=== PATIENT | male | born 1985 | race Caucasian/White ===

== ENCOUNTER 2020-03-11 07:56 | Emergency (ER) | payer SELFPAY ==
[2020-03-11] MEDS ORDERED: ONDANSETRON 4 MG/2 ML INJ IV ONE (09:27)
[2020-03-11] MEDS ORDERED: SODIUM CHLORIDE 0.9% 1000 ML 1,000 ML IV ONE ×3 (09:27→11:56)
[2020-03-11] MEDS ORDERED: HYDROmorphone 1 MG/1 ML INJ IV ONE (09:28)
[2020-03-11 09:32] LABS: Basophils % (Auto) 0.4 % (0.0-1.8); Eosinophils # (Auto) 0.1 K/mm3 (0.0-0.4); Eosinophils % (Auto) 1.1 % (0.0-4.3); Hematocrit 44.1 % (35.5-45.6); Hemoglobin 14.9 gm/dl (11.8-15.2); Lymphocytes # (Auto) 2.1 K/mm3 (1.2-5.4); Lymphocytes % (Auto) 23.4 % (13.4-35.0); Mean Corpuscular HGB Conc 34 % (32-34); Mean Corpuscular Volume 93 fl (84-94); Monocytes # (Auto) 0.6 K/mm3 (0.0-0.8); Platelet Count 269 K/mm3 (140-440); Red Blood Count 4.76 M/mm3 (3.65-5.03); Red Cell Distribution Width 13.5 % (13.2-15.2)
--- NOTE | 2020-03-11 09:32 | Emergency Department Report ---
ED Abdominal Pain HPI - General Chief Complaint: Abdominal Pain Stated Complaint: LEFT SIDED ABD PAIN/NOT URINATING Time Seen by Provider: 03/11/20 09:22 Source: patient Mode of arrival: Ambulatory Limitations: No Limitations - History of Present Illness Initial Comments: Patient is a 34-year-old male who presents emergency room complaints of left lower quadrant abdominal pain that radiates to his back that began last night. He has associated nausea. He states that he also has urinary retention and has not urinated since 10 PM last night. He denies any vomiting, diarrhea, hematochezia, melena, hematemesis. He states that he had a normal bowel movement this morning. No past medical history. No allergies to medications. No abdominal surgical history. No recent travel or sick contacts. - Related Data Previous Rx's Medication Instructions Recorded Last Taken Type Acetaminophen [8 Hour 650 mg PO Q6HR PRN #30 tablet.er 11/06/19 Unknown Rx Acetaminophen] Albuterol Sulfate [Proair 90 mcg IH Q4HR PRN #2 aer.pow.ba 11/06/19 Unknown Rx Respiclick] Ondansetron [Zofran Odt] 4 mg PO Q8HR PRN #7 tab.rapdis 03/11/20 Unknown Rx Tamsulosin [Flomax] 0.4 mg PO QDAY #7 cap 03/11/20 Unknown Rx traMADoL [Ultram 50 MG tab] 50 mg PO Q6HR PRN #10 tablet 03/11/20 Unknown Rx Allergies Allergy/AdvReac Type Severity Reaction Status Date / Time No Known Allergies Allergy Verified 05/26/13 19:28 ED Review of Systems ROS: Stated complaint: LEFT SIDED ABD PAIN/NOT URINATING Other details as noted in HPI Comment: All other systems reviewed and negative ED Past Medical Hx - Past Medical History Previous Medical History?: No - Surgical History Past Surgical History?: No - Social History Smoking Status: Never Smoker - Medications Home Medications: Home Medications Medication Instructions Recorded Confirmed Last Taken Type Acetaminophen [8 Hour 650 mg PO Q6HR PRN #30 tablet.er 11/06/19 Unknown Rx Acetaminophen] Albuterol Sulfate [Proair 90 mcg IH Q4HR PRN #2 aer.pow.ba 11/06/19 Unknown Rx Respiclick] Ondansetron [Zofran Odt] 4 mg PO Q8HR PRN #7 tab.rapdis 03/11/20 Unknown Rx Tamsulosin [Flomax] 0.4 mg PO QDAY #7 cap 03/11/20 Unknown Rx traMADoL [Ultram 50 MG tab] 50 mg PO Q6HR PRN #10 tablet 03/11/20 Unknown Rx ED Physical Exam - General Limitations: No Limitations General appearance: alert, in no apparent distress - Head Head exam: Present: atraumatic, normocephalic - Eye Eye exam: Present: normal appearance - ENT ENT exam: Present: mucous membranes moist - Respiratory Respiratory exam: Present: normal lung sounds bilaterally. Absent: respiratory distress, wheezes, rales, rhonchi, stridor, chest wall tenderness, accessory muscle use, decreased breath sounds, prolonged expiratory - Cardiovascular Cardiovascular Exam: Present: regular rate, normal rhythm, normal heart sounds. Absent: systolic murmur, diastolic murmur, rubs, gallop - GI/Abdominal GI/Abdominal exam: Present: soft, tenderness (LLQ), normal bowel sounds. Absent: distended, guarding, rebound, rigid - Back Exam Back exam: Present: CVA tenderness (L) (mild). Absent: CVA tenderness (R) - Neurological Exam Neurological exam: Present: alert, oriented X3 - Psychiatric Psychiatric exam: Present: normal affect, normal mood - Skin Skin exam: Present: warm, dry, intact ED Course Vital Signs 03/11/20 03/11/20 03/11/20 08:10 10:11 11:38 Temperature 97.9 F Pulse Rate 60 Respiratory 16 18 18 Rate Blood Pressure 139/89 O2 Sat by Pulse 100 Oximetry 03/11/20 12:08 Temperature Pulse Rate Respiratory 18 Rate Blood Pressure O2 Sat by Pulse Oximetry ED Medical Decision Making - Lab Data Result diagrams: 03/11/20 08:40 03/11/20 08:40 Lab Results 03/11/20 03/11/20 03/11/20 Range/Units 08:40 08:40 13:42 WBC 8.8 (4.5-11.0) K/mm3 RBC 4.76 (3.65-5.03) M/mm3 Hgb 14.9 (11.8-15.2) gm/dl Hct 44.1 (35.5-45.6) % MCV 93 (84-94) fl MCH 31 (28-32) pg MCHC 34 (32-34) % RDW 13.5 (13.2-15.2) % Plt Count 269 (140-440) K/mm3 Lymph % (Auto) 23.4 (13.4-35.0) % [place] % (Auto) 7.0 (0.0-7.3) % Eos % (Auto) 1.1 (0.0-4.3) % Baso % (Auto) 0.4 (0.0-1.8) % Lymph # 2.1 (1.2-5.4) K/mm3 [place] # 0.6 (0.0-0.8) K/mm3 Eos # 0.1 (0.0-0.4) K/mm3 Baso # 0.0 (0.0-0.1) K/mm3 Seg Neutrophils % 68.1 (40.0-70.0) % Seg Neutrophils # 6.0 (1.8-7.7) K/mm3 Sodium 141 (137-145) mmol/L Potassium 4.4 (3.6-5.0) mmol/L Chloride 103.6 (98-107) mmol/L Carbon Dioxide 24 (22-30) mmol/L Anion Gap 18 mmol/L BUN 14 (9-20) mg/dL Creatinine 0.9 (0.8-1.3) mg/dL Estimated GFR > 60 ml/min BUN/Creatinine Ratio 16 % Glucose 138 H (75-100) mg/dL Calcium 9.0 (8.4-10.2) mg/dL Total Bilirubin 0.20 (0.1-1.2) mg/dL AST 23 (5-40) units/L ALT 37 (7-56) units/L Alkaline Phosphatase 95 (35-129) units/L Total Protein 7.4 (6.3-8.2) g/dL Albumin 4.4 (3.9-5) g/dL Albumin/Globulin Ratio 1.5 % Lipase 32 (13-60) units/L Urine Color Straw (Yellow) Urine Turbidity Slightly-cloudy (Clear) Urine pH 5.0 (5.0-7.0) Ur Specific [place] 1.050 H (1.003-1.030) Urine Protein <15 mg/dl (Negative) mg/dL Urine Glucose (UA) Neg (Negative) mg/dL Urine Ketones Neg (Negative) mg/dL Urine Blood Mod (Negative) Urine Nitrite Neg (Negative) Urine Bilirubin Neg (Negative) Urine Urobilinogen < 2.0 (<2.0) mg/dL Ur Leukocyte Esterase Neg (Negative) Urine WBC (Auto) 5.0 (0.0-6.0) /HPF Urine RBC (Auto) 28.0 (0.0-6.0) /HPF Calcium Oxalate Crystal 2+ - Radiology Data Radiology results: report reviewed CT ABDOMEN AND PELVIS WITH CONTRAST INDICATION / CLINICAL INFORMATION: Left lower quadrant pain, left lower back pain, urinary retention. TECHNIQUE: Axial CT images were obtained through the abdomen and pelvis after 100 cc Omnipaque [address] scans at this location are performed using CT dose reduction for ALARA by means of automated exposure control. COMPARISON: None available. FINDINGS: LOWER CHEST: No significant abnormality. LIVER: There is generalized steatosis without an additional significant abnormality. GALLBLADDER: No significant abnormality. BILE DUCTS: No significant abnormality. PANCREAS: No significant abnormality. SPLEEN: No significant abnormality. ADRENALS: No significant abnormality. RIGHT KIDNEY / URETER: No stable nonobstructive stones are seen along the upper and lower poles of the right kidney measuring up to 5.1 mm along the lower pole. No other significant abnormality. LEFT KIDNEY / URETER: A left renal pelvic stone measures 2.0 x 1.2 cm with secondary mild hydronephrosis. Additional smaller renal stones are present measuring up to 8 mm along the lower pole. There are 2 stones at the left UVJ measuring up to 5.6 mm with secondary mild hydroureter. Mild perinephric and periureteral fat stranding is present. There is mild left urothelial enhancement. A delayed nephrogram is noted as well. No other significant abnormality. STOMACH / SMALL BOWEL: No significant abnormality. COLON: No significant abnormality. APPENDIX: No significant abnormality. PERITONEUM: No free fluid. No free air. No fluid collection. LYMPH NODES: No significant adenopathy. AORTA / ARTERIES: No significant abnormality. IVC / VEINS: No significant abnormality. URINARY BLADDER: No significant abnormality. REPRODUCTIVE ORGANS: The prostate gland is mildly calcified and normal in size. ADDITIONAL FINDINGS: None. SKELETAL SYSTEM: No significant abnormality. IMPRESSION: 1. Left renal pelvic stone measuring up to 2 cm and left UVJ stones measuring up to 5.6 mm with secondary mild hydroureteronephrosis. 2. Nonobstructive bilateral renal stones as above. 3. Additional findings as above. Signer Name: Boone Way MD Signed: 03/11/2020 10:31 AM Workstation Name: [id number] Transcribed By: AWAIS Dictated By: Boone Way MD Electronically Authenticated By: Boone Way MD Signed Date/Time: 03/11/20 1031 DD/ 1026 TD/TT: - Medical Decision Making Patient is a 34-year-old male who presents emergency room complaints of left lower quadrant abdominal pain that radiates to his back that began last night. He has associated nausea. He states that he also has urinary retention and has not urinated since 10 PM last night. He denies any vomiting, diarrhea, hematochezia, melena, hematemesis. He states that he had a normal bowel movement this morning. No past medical history. No allergies to medications. No abdominal surgical history. No recent travel or sick contacts. VSS. on exam: Patient has left lower quadrant abdominal tenderness palpation, mild left CVA tenderness to percussion, no guarding, no rebound, no rigidity, normal bowel sounds, no peritoneal signs. Labs with mildly elevated nonfasting blood glucose at 138, otherwise normal. UA shows evidence of red blood cells, no signs of infection. CT abdomen pelvis with IV contrast shows 1. Left renal pelvic stone measuring up to 2 cm and left UVJ stones measuring up to 5.6 mm with secondary mild hydroureteronephrosis. 2. Nonobstructive bilateral renal stones as above. 3. Additional findings as above. Patient given 2 L IV fluids, Zofran, Dilaudid, Toradol, Flomax and symptoms completely improved and patient was feeling much better ready to go home. Discussed all results with patient and answered questions. Patient was able to urinate without any difficulty. Patient given prescription for tramadol, Flomax, Zofran. Advised patient Please take medication as prescribed. Do not drive or operate heavy machinery or work while taking pain medication (tramadol). Increase your water intake. Follow-up with a urologist. Follow-up with a primary care doctor. Return to emergency room for any new or worsening symptoms - Differential Diagnosis diverticulitis, colitis, IBD, nephrolithiasis, mass, BPH, obstruction Critical care attestation.: If time is entered above; I have spent that time in minutes in the direct care of this critically ill patient, excluding procedure time. ED Disposition Clinical Impression: Nausea, Nephrolithiasis Abdominal pain Qualifiers: Abdominal location: left lower quadrant Qualified Code(s): R10.32 - Left lower quadrant pain Low back pain Qualifiers: Chronicity: acute Back pain laterality: left Sciatica presence: without sciatica Qualified Code(s): M54.5 - Low back pain Disposition: TO HOME OR SELFCARE Is pt being admited?: No Does the pt Need Aspirin: No Condition: Stable Instructions: Kidney Stones (ED) Additional Instructions: .Please take medication as prescribed. Do not drive or operate heavy machinery or work while taking pain medication (tramadol). Increase your water intake. Follow-up with a urologist. Follow-up with a primary care doctor. Return to emergency room for any new or worsening symptoms Prescriptions: Tamsulosin [Flomax] 0.4 mg PO QDAY #7 cap traMADoL [Ultram 50 MG tab] 50 mg PO Q6HR PRN #10 tablet PRN Reason: Pain , Severe (7-10) Ondansetron [Zofran Odt] 4 mg PO Q8HR PRN #7 tab.rapdis PRN Reason: Nausea And Vomiting Referrals: TAMMY ARANA MD [Staff Physician] - 2-3 Days GARCÍA URBANO MD [Staff Physician] - 2-3 Days (urologist ) Time of Disposition: 14:24 Print Language: KENYAN
[2020-03-11 09:46] LABS: Alanine Aminotransferase 37 units/L (7-56); Albumin 4.4 g/dL (3.9-5); BUN/Creatinine Ratio 16; Blood Urea Nitrogen 14 mg/dL (9-20); Hemolysis Index 8
--- NOTE | 2020-03-11 10:36 | Cat Scan Report ---
CT ABDOMEN AND PELVIS WITH CONTRAST INDICATION / CLINICAL INFORMATION: Left lower quadrant pain, left lower back pain, urinary retention. TECHNIQUE: Axial CT images were obtained through the abdomen and pelvis after 100 cc Omnipaque [address] scans at this location are performed using CT dose reduction for ALARA by means of automated exposure control. COMPARISON: None available. FINDINGS: LOWER CHEST: No significant abnormality. LIVER: There is generalized steatosis without an additional significant abnormality. GALLBLADDER: No significant abnormality. BILE DUCTS: No significant abnormality. PANCREAS: No significant abnormality. SPLEEN: No significant abnormality. ADRENALS: No significant abnormality. RIGHT KIDNEY / URETER: No stable nonobstructive stones are seen along the upper and lower poles of th e right kidney measuring up to 5.1 mm along the lower pole. No other significant abnormality. LEFT KIDNEY / URETER: A left renal pelvic stone measures 2.0 x 1.2 cm with secondary mild hydronephro sis. Additional smaller renal stones are present measuring up to 8 mm along the lower pole. There are 2 stones at the left UVJ measuring up to 5.6 mm with secondary mild hydroureter. Mild perinephric an d periureteral fat stranding is present. There is mild left urothelial enhancement. A delayed nephrog oanh is noted as well. No other significant abnormality. STOMACH / SMALL BOWEL: No significant abnormality. COLON: No significant abnormality. APPENDIX: No significant abnormality. PERITONEUM: No free fluid. No free air. No fluid collection. LYMPH NODES: No significant adenopathy. AORTA / ARTERIES: No significant abnormality. IVC / VEINS: No significant abnormality. URINARY BLADDER: No significant abnormality. REPRODUCTIVE ORGANS: The prostate gland is mildly calcified and normal in size. ADDITIONAL FINDINGS: None. SKELETAL SYSTEM: No significant abnormality. IMPRESSION: 1. Left renal pelvic stone measuring up to 2 cm and left UVJ stones measuring up to 5.6 mm with secon johnna mild hydroureteronephrosis. 2. Nonobstructive bilateral renal stones as above. 3. Additional findings as above. Signer Name: Boone Way MD Signed: 03/11/2020 10:31 AM Workstation Name: [id number]
[2020-03-11] MEDS ORDERED: KETOROLAC 30 MG/1 ML INJ IV ONE (11:30)
[2020-03-11] MEDS ORDERED: TAMSULOSIN 0.4 MG CAP PO NR (12:30)
[2020-03-11 14:11] LABS: Bilirubin,Urine NEG (Negative); Blood,Urine MOD (Negative); Calcium Oxalate Crystals,Urine 2+; Color,Urine Straw (Yellow); Protein,Urine <15 mg/dL mg/dL (Negative); Urobilinogen,Urine < 2.0 mg/dL (<2.0)
[2020-03-11 15:53] VITALS: BP 132/81
== END 2020-03-11 15:58 | disposition home or self-care (01) ==
LOC: ED 07:56
DX: N20.0 Calculus of kidney (principal); M54.5 Low back pain; R10.32 Left lower quadrant pain; R11.0 Nausea; Z79.899 Other long term (current) drug therapy
CPT/HCPCS: 36415; 74177; 80053; 81001; 83690; 85025; 96361; 96374; 96375; 99284; J1170; J1885; J2405; J7030; Q9967